=== PATIENT | female | born 1990 | race Two or more races ===

== ENCOUNTER 2016-10-09 06:03 | Emergency (ER) | payer SELFPAY ==
[2016-10-09] MEDS ORDERED: KETOROLAC TROMETHAMINE 15 MG/ML VIAL ONE (06:17)
[2016-10-09] MEDS ORDERED: ACETAMINOPHEN 500 MG TABLET ONE (06:28)
[2016-10-09 06:46] LABS: HCG,QUALITATIVE URINE NEGATIVE
[2016-10-09 06:49] LABS: URINE APPEARANCE CLEAR; URINE BILIRUBIN NEGATIVE (NEGATIVE); URINE BLOOD 1+ (NEGATIVE); URINE COLOR YELLOW; URINE GLUCOSE (UA) NEGATIVE (NEGATIVE); URINE LEUKOCYTE ESTERASE NEGATIVE (NEGATIVE); URINE NITRITE NEGATIVE (NEGATIVE); URINE PROTEIN NEGATIVE (NEGATIVE); URINE UROBILINOGEN NORMAL (0-1 mg/dl)
[2016-10-09 06:55] LABS: URINE BACTERIA RARE; URINE EPITHELIAL CELLS 0-1 /hpf; URINE WBC NEG /hpf
[2016-10-09] MEDS ORDERED: LACTATED RINGERS 1,000 ML ONE (07:14)
[2016-10-09] MEDS ORDERED: OXYCODONE HCL 5 MG TABLET ONE (07:14)
[2016-10-09 07:23] LABS: BASO # 0.1 K/mm3 (0.0-0.2); BASO % 0.6 % (0.2-1.0); EOS # 0.1 (0.0-0.5); EOS % 1.5 % (0.9-2.9); HEMATOCRIT 40.4 % (37.0-47.0); HEMOGLOBIN 13.4 gm/l (12.0-16.0); IMM NEUT% 0.2 % (0-1); LYMPH # 3.6 (1.0-4.8); MEAN CELL VOLUME 90.8 fl (81.0-99.0); MEAN CORPUSCULAR HEMOGLOBIN 30.1 pg (27.0-31.0); MEAN CORPUSCULAR HGB CONC 33.2 g/dl (33.0-37.0); MEAN PLATELET VOLUME 10.9 fl (7.4-10.4); MONO # 0.5 (0.0-0.8); MONO % 6.5 % (4-12); NEUT % 48.2 % (43-75); PLATELET COUNT 195 K/mm3 (130-400); RED CELL DISTRIBUTION WIDTH 12.6 % (11.5-14.5)
--- NOTE | 2016-10-09 07:39 | CT ---
Exam Type: ABD/PELVIS W/O CON Date and Time: 10/09/2016 7:15 AM Clinical information: Right flank pain and right lower quadrant pain. Comparison: 03/07/2015. Procedure: Imaging device: [employer] [address] scanner 1 mm axial images were obtained through the abdomen and pelvis. Stacked reconstructed 3, 4 and 5 mm images were photographed in the axial coronal and sagittal planes. No oral contrast was utilized for this examination. Exam: Without intravenous contrast. FINDINGS: Lung bases:The visualized lung bases appear to be appropriate with no mass, effusion or consolidation visualized. Liver: the liver is homogeneous with no discrete abnormality visualized. No definite findings of biliary dilatation are observed. Spleen: The spleen is homogeneous and does not appear to be enlarged. Gallbladder: Surgically absent. Pancreas: Normal without enlargement or evidence of adjacent inflammatory changes. Adrenal glands: Normal without enlargement or evidence of adjacent inflammatory changes. Abdominal aorta: The aorta is of normal caliber and appears to be without significant atherosclerotic disease. Kidneys: The kidneys appear to be symmetric in size with no perinephric inflammatory changes are identified. No current findings of hydronephrosis are seen. No evidence of an intrarenal or intraureteral calculus is visualized. Bowel structures: The visualized bowel is of normal caliber without evidence of dilatation or obstruction. No free fluid or mesenteric inflammatory changes are identified. Appendix: The appendix is well-visualized and appears to be of normal caliber. No periappendiceal inflammatory changes or CT findings of appendicitis are currently observed. Bladder: The bladder is of normal contour. No wall thickening or significant distention is observed. Hernia: There is a fat filled umbilical hernia noted. Adenopathy: A few scattered nonenlarged right lower quadrant mesenteric lymph nodes are identified. Osseous structures: There is evidence of bilateral spondylolysis of L5 with slight anterolisthesis of L5 on S1. Pelvic structures: No discrete pelvic abnormalities are visualized in this examination. IMPRESSION: 1. No evidence of an intrarenal or intraureteral calculus observed. 2. A normal appearance of the appendix without current CT evidence of appendicitis. 3. Prior cholecystectomy. 4. A fat filled umbilical hernia. 5. Bilateral spondylolysis of L5 with slight anterolisthesis of L5 on S1.
[2016-10-09 07:41] LABS: ALB/GLOB RATIO 1.6 (>1.0); ALBUMIN 4.4 gm/dL (3.5-5.7); CALCIUM 9.6 mg/dL (8.6-10.3)
== END 2016-10-09 08:41 | disposition home or self-care (01) ==
LOC: ED 06:03
DX: M54.5 Low back pain (principal); R20.2 Paresthesia of skin; R10.11 Right upper quadrant pain; R79.89 Other specified abnormal findings of blood chemistry
CPT/HCPCS: 81025; 85025; 80053; 81001; 74176; 99284; 96372; 99283; A9270 ×2; J1885; J7120